=== PATIENT | male | born 1950 | race Caucasian/White ===

== ENCOUNTER 2021-07-16 16:42 | Emergency (ER) | payer MEDICARE, MEDICAID, SELFPAY ==
--- NOTE | ~2021-07-16 | CT_ITS ---
EXAMINATION: CT abdomen pelvis wo con DATE: 07/16/2021 18:33 INDICATION: Vomiting for 2 days TECHNIQUE: Computed tomography (CT) of the abdomen and pelvis was performed without intravenous contr ast. Automated exposure control and iterative reconstruction technique were employed. Exam dose: 118 7.08 mGy-cm total exam DLP. COMPARISON: None. FINDINGS: There are patchy infiltrates in the lower lung zones including middle lobe, lingula, left l ower lobe and to a greater extent the dependent right lower lobe. Consider bilateral pneumonia as wel l as aspiration pneumonitis. 4.5 mm left lower lobe pulmonary nodule. Cardiomegaly. No pericardial or pleural effusion. No hepatic, splenic, pancreatic or adrenal space-occupying mass lesion is evident. There is severe atrophy of both samish kidneys. There are bilateral negative renal cysts measuring up to 2.7 cm on the right and 13.7 cm on the left. Right transplant kidney appears unremarkable, without calculus, hydronephrosis or mass lesion. Prostate enlargement. There is a small air bubble in the bladder lumen. Status post colectomy with right ileostomy. No bowel obstruction or intraperitoneal free air. Normal caliber of the abdominal aorta. No intraperitoneal or retroperitoneal or pelvic mass lesion or adenopathy or ascites. No suspicious osteolytic or osteoblastic lesions are noted. IMPRESSION: Right renal transplant; severe atrophy of the samish kidneys and bilateral samish renal cysts including one on the left measuring up to 13.7 cm Bilateral lower lung infiltrates; consider pneumonia, aspiration pneumonitis Cardiomegaly Reviewed, dictated and finalized at Location Status post colectomy, right ileostomy A. Reviewed, dictated and finalized at location A. R IMPRESSION: Right renal transplant; severe atrophy of the samish kidneys and b ilateral samish renal cysts including one on the left measuring up to 13.7 cm Bilateral lower lung infiltrates; consider pneumonia, aspiration pneumonitis Cardiomegaly
--- NOTE | ~2021-07-16 | XR_ITS ---
XR chest 1V portable DATE: 07/16/2021 19:47 INDICATION: Shortness of breath. Vomiting. TECHNIQUE: Portable upright AP chest on 07/16/2021 at 1943 hours COMPARISON: None FINDINGS: Heart size appears within normal limits. There is patchy infiltrate scattered in both lungs, right greater than left, suggesting bilateral pne umonia. No pleural effusion or pulmonary vascular congestion or pneumothorax. Diffuse osteopenia. IMPRESSION: Scattered bilateral patchy pulmonary infiltrates, right greater than left, suggesting terrance ateral pneumonia Reviewed, dictated and finalized at location A. ECTOR SUBASSEMBLY IMPRESSION: Scattered bilateral patchy pulmonary infiltrates, right greater joanna n left, suggesting bilateral pneumonia
--- NOTE | 2021-07-16 16:43 | ECG_ITS ---
Measurements Intervals [place] Rate: 114 P: -17 NE: 244 QRS: 224 QRSD: 166 T: 0 QT: 227 QTc: 313 Interpretive Statements SINUS RHYTHM WITH FIRST DEGREE AV BLOCK RIGHT AXIS DEVIATION RIGHT BUNDLE BRANCH BLOCK INFERIOR INFARCT, AGE INDETERMINATE PEAKED T WAVES- CONSIDER HYPERKALEMIA OR ISCHEMIA BASELINE ARTIFACT- I, II, III, AVR, AVF, V1-V6 ABNORMAL ECG Electronically Signed On 07-16-2021 20:58:57 DRIVE IN TELLER by Wan Farley D.O.
--- NOTE | 2021-07-16 16:45 | ED.ABDPAIN ---
HPI - Abdominal Pain General Chief Complaint: Abdominal Pain Stated Complaint: nausea vomiting Source: EMS Mode of arrival: EMS History of Present Illness HPI narrative: Patient came by ambulance from alf complaining of nausea, vomiting and abdominal pain for the last 2 days. History of dementia. Patient admitted to alf 5 days ago. Most of his records at [facility] History of liver transplant 1998, kidney transplant 2012 and total collectomy. Patient was tested positive for Covid on June 16, 2021 and received a monoclonal antibody infusion., Patient is DNR, his brother who have the power of business attorney at the bedside. Related Data Allergies Allergy/AdvReac Type Severity Reaction Status Date / Time aspirin [From Aspergum] Allergy Unknown Verified 07/16/21 16:54 spironolactone Allergy Unknown Verified 07/16/21 16:54 Review of Systems Review of Systems: ROS unobtainable: Yes unobtainable due to mental status Exam Narrative: General appearance: Well-developed, well-nourished Skin: Pale Chest and respiratory: Airway patent, no respiratory distress, no accessory muscle use Heart: Regular rate/rhythm Abdomen: Soft, nontender, no organomegaly, quiet bowel sounds, colostomy bag in place Vascular: Normal peripheral pulses, normal capillary refill. Musculoskeletal: Normal range of motion, nontender back Neurologic: Alert and oriented to his name only Course Course Emergency Course: Stable Reevaluation(s) Reevaluation #1: Patient brother who have the power of business attorney decided to change the CODE STATUS to comfort measures only/hospice. Patient will be discharged back to alf to start hospice over the. Discussed with Dr. Sidhu Date: 07/16/21 Time: 21:04 Consultations Consultation #1: Dr. Thea Funk: agreed to start patient on hospice at the alf. Date: 07/16/21 Time: 21:04 Vital Signs Vital signs: Vital Signs Temperature 35.5 C L 07/16/21 16:48 Pulse Rate 123 H 07/16/21 16:48 Respiratory Rate 17 07/16/21 16:48 Blood Pressure 105/69 07/16/21 16:48 Pulse Oximetry 96 07/16/21 16:48 Temperature 35.5 C L 07/16/21 16:48 Pulse Rate 123 H 07/16/21 16:48 Respiratory Rate 17 07/16/21 16:48 Blood Pressure 105/69 07/16/21 16:48 Pulse Oximetry 96 07/16/21 16:48 MDM - Abdominal Pain MDM Narrative Medical decision making narrative: Work-up showed that the patient have acute renal failure, with elevated potassium. Patient is status post kidney transplant, recent Covid infection May 2021, which could be the underlying cause of patient renal failure. Patient received monoclonal antibodies infusion. Patient does not look in pain or respiratory distress Differential Diagnosis Differential diagnosis: Likely abdominal pain, constipation, diverticulitis, gastroenteritis, pancreatitis and small bowel obstruction Lab Data Result diagrams: 07/16/21 17:28 07/16/21 17: Labs: Lab Results 07/16/21 07/16/21 07/16/21 Range/Units 17:16 17:28 17:28 WBC 8.5 (4.5-10.0) K/mm3 RBC 4.16 L (4.6-6.20) M/mm3 Hgb 13.5 L (14.0-18.0) g/dL Hct 40.7 L (42.0-52.0) % MCV 97.8 (80-100) fl MCH 32.5 (26-34) pg MCHC 33.2 (32-36) g/dl RDW 15.6 H (11.5-14.5) % Plt Count 156 (150-375) k/mm3 MPV 11.9 H (7.4-10.4) fl Immature Gran % (Auto) 1.3 H (0-0.5) % Neut % (Auto) 88.9 H (45.5-73.1) % Lymph % (Auto) 5.4 L (18.3-44.2) % Jennings % (Auto) 4.0 (2.6-8.5) % Eos % (Auto) 0.0 (0-4.4) % Baso % (Auto) 0.4 (0.2-1.2) % Lymph # (Auto) 0.46 L (0.9-3.2) K/mm3 Jennings # (Auto) 0.3 (0.1-
[2021-07-16 16:48] VITALS: BP 105/69; PULSE 123; RESP 17; TEMP 35.5; O2SAT 96
[2021-07-16 17:27] LABS: Add Urine Microscopic? NO; Appearance Urine Clear (Clear); Bilirubin Urine Negative (Negative); Blood Urine Negative (Negative); Color Urine Yellow (Yellow); Glucose Urine UA Negative (Negative); Ketones Urine Negative (Negative); Leukocyte Esterase Ur Negative LEU/UL (Negative); Nitrate Urine Negative (Negative); Protein Urine Negative (Negative); Specific Grav Ur 1.014 (1.001-1.035); Urobilinogen Urine Negative mg/dL (<2.0)
[2021-07-16] MEDS: ONDANSETRON INJ 4 MG/2 ML VIAL IV PUSH (17:34)
[2021-07-16] MEDS: SODIUM CHLORIDE 0.9% IV 1,000 ML 999 ML IV CONT (17:34)
--- NOTE | 2021-07-16 17:36 | PC.NURSE ---
Pt denies any pain at this time. No need for dilaudid, order cancelled. MD aware
[2021-07-16 17:45] LABS: Basophils Percent Auto 0.4 % (0.2-1.2); Hematocrit 40.7 % (42.0-52.0); Hemoglobin 13.5 g/dL (14.0-18.0); Immature Granulocyte Absolute 0.11 K/mm3 (0.00-0.031); Immature Granulocyte Percent A 1.3 % (0-0.5); Lymphocytes Absolute Auto 0.46 K/mm3 (0.9-3.2); Lymphocytes Percent Auto 5.4 % (18.3-44.2); Mean Corpuscular HGB Conc 33.2 g/dl (32-36); Mean Corpuscular Hemoglobin 32.5 pg (26-34); Mean Corpuscular Volume 97.8 fl (80-100); Mean Platelet Volume 11.9 fl (7.4-10.4); Monocytes Absolute Auto 0.3 K/mm3 (0.1-0.6); Neutrophils Absolute Auto 7.6 K/mm3 (1.3-6.7); Neutrophils Percent Auto 88.9 % (45.5-73.1); Platelet Count Result 156 k/mm3 (150-375); Red Blood Count 4.16 M/mm3 (4.6-6.20); Red Cell Distribution Width 15.6 % (11.5-14.5); White Blood Count 8.5 K/mm3 (4.5-10.0)
--- NOTE | 2021-07-16 17:52 | PC.NURSE ---
Pt pleasantly confused, remains oriented to self which is baseline. Placed on bed alarm as precautions, no attempts to get OOB unassisted.
[2021-07-16 17:54] LABS: Lactic Acid Reflex 1.9 mmol/L (0.7-2.1)
[2021-07-16 18:05] LABS: Alanine Aminotransferase 25 U/L (4-50); Albumin Level 4.3 g/dL (3.5-5.1); Alkaline Phosphatase 212 U/L (38-126); Anion Gap 13 mmol/L (8-16); Aspartate Amino Transferase 31 U/L (17-59); Bilirubin,Total 0.7 mg/dL (0.2-1.3); Blood Urea Nitrogen 58 mg/dL (9-20); Calcium 9.6 mg/dL (8.4-10.2); Carbon Dioxide 12 mmol/L (22-30); Chloride 108 mmol/L (98-107); Estimated CRCL calculation 9 ml/min; Estimated Glomerular Filt Rate 7; Glucose 149 mg/dL (65-110); Lipase 91 U/L (23-300); Potassium 6.5 mmol/L (3.4-5.0); Sodium 133 mmol/L (137-145)
--- NOTE | 2021-07-16 18:17 | PC.NURSE ---
BUN and creatinine elevated, MD and radiology aware. CT scan WITHOUT contrast.
[2021-07-16] MEDS: DEXTROSE 50% 25 GM/50 ML SYRINGE IV PUSH (18:45)
[2021-07-16] MEDS: CALCIUM GLUCONATE 1,000 MG/10 ML VIAL 1000 MG IV PUSH (18:45)
[2021-07-16] MEDS: SODIUM BICARBONATE 8.4% 50 MEQ/50 ML SYRINGE IV PUSH (18:45)
[2021-07-16] MEDS: SODIUM POLYSTYRENE SULFONONATE 15 GM/60 ML BTL 30 GM PO (18:45)
[2021-07-16] MEDS: INSULIN HUMAN REGULAR (*BKC) 100 UNITS/ML 10 UNITS IV PUSH (18:47)
--- NOTE | 2021-07-16 19:58 | PC.NURSE ---
Ostomy emptied for 300 mL. Blood sugar stable.
[2021-07-16 20:02] LABS: Glucose Point of Care 146 mg/dl (65-105)
--- NOTE | 2021-07-16 21:22 | PC.NURSE ---
Spoke with nurse at [facility]. Gave update at this time. Family aware of scans and results, have made decision to pursue hospice at this time. Hospice services to be coordinated through PCP and [facility].
[2021-07-16 21:50] VITALS: PULSE 64; RESP 22; O2SAT 97
== END 2021-07-16 21:50 | disposition hospice, home (50) ==
PROVIDERS: Emergency Provider Emergency Medicine; PCP Family Medicine
DX: N17.9 Acute kidney failure, unspecified (principal); E87.5 Hyperkalemia; Z94.4 Liver transplant status; Z94.0 Kidney transplant status; Z90.49 Acquired absence of other specified parts of digestive tract; F03.90 Unspecified dementia, unspecified severity, without behavioral disturbance, psychotic disturbance, mood disturbance, and anxiety; Z93.2 Ileostomy status; Z86.16 Personal history of COVID-19; I51.7 Cardiomegaly; R91.8 Other nonspecific abnormal finding of lung field; I44.0 Atrioventricular block, first degree; I45.10 Unspecified right bundle-branch block; R94.31 Abnormal electrocardiogram [ECG] [EKG]
CPT/HCPCS: 36415; 51701; 71045; 74176; 80053; 81003; 82948; 83605; 83690; 85025; 93005; 96361; 96374; 96375; 99284; A9270; J0610; J1815; J2405; J7030